=== PATIENT | male | born 1965 | race American Indian/Alaskan Native ===

== ENCOUNTER 2016-10-23 12:25 | Inpatient (IN) | payer BC ==
[2016-10-23 14:00] LABS: Basophils % (Auto) 0.6 % (0.0-1.8); Eosinophils % (Auto) 1.1 % (0.0-4.3); Hemoglobin 14.4 gm/dl (11.8-15.2); Mean Corpuscular HGB Conc 33 % (32-34); Mean Corpuscular Hemoglobin 28 pg (28-32); Mean Corpuscular Volume 84 fl (84-94); Platelet Count 209 K/mm3 (140-440); Red Blood Count 5.11 M/mm3 (3.65-5.03); White Blood Count 8.3 K/mm3 (4.5-11.0)
[2016-10-23 14:20] LABS: Anion Gap 21 mmol/L; BUN/Creatinine Ratio 12.22; Blood Urea Nitrogen 11 mg/dL (9-20); Calcium 9.7 mg/dL (8.4-10.2); Carbon Dioxide 25 mmol/L (22-30); Chloride 86.7 mmol/L (98-107); Potassium 5.3 mmol/L (3.6-5.0); Sodium 127 mmol/L (137-145)
[2016-10-23 14:35] LABS: Glucose 746 mg/dL (75-100)
[2016-10-23] MEDS ORDERED: NACL 0.9% 1000 ML 1,000 ML IV ONE ×2 (17:30→17:36)
--- NOTE | 2016-10-23 17:32 | Emergency Department Report ---
ED General Adult HPI - General Chief complaint: Abdominal Pain Stated complaint: LIGHTHEADED AND DIZZY Time Seen by Provider: 10/23/16 17:08 Source: patient Mode of arrival: Ambulatory Limitations: No Limitations - Related Data Home Medications Medication Instructions Recorded Confirmed Last Taken No Known Home Medications [No 10/23/16 10/23/16 Unknown Reported Home Medications] Allergies Allergy/AdvReac Type Severity Reaction Status Date / Time No Known Allergies Allergy Verified 02/07/14 04:58 ED Review of Systems ROS: Stated complaint: LIGHTHEADED AND DIZZY Other details as noted in HPI ED Past Medical Hx - Past Medical History Hx Hypertension: No Hx CVA: No Hx GERD: No Hx Renal Disease: No (Renal stones only) Hx Sickle Cell Disease: No Hx Arthritis: No Hx Headaches / Migraines: No Hx Seizures: No Hx Kidney Stones: Yes Hx Psychiatric Treatment: No Hx Asthma: Yes (Triggered by paint fumes only) Hx HIV: No Additional medical history: kidney stones - Surgical History Hx Pacemaker: No Hx Breast Surgery: No - Social History Smoking Status: Never Smoker - Medications Home Medications: Home Medications Medication Instructions Recorded Confirmed Last Taken Type No Known Home Medications [No 10/23/16 10/23/16 Unknown History Reported Home Medications] ED Physical Exam - General Limitations: No Limitations ED Course Vital Signs 10/23/16 13:12 Temperature 98.5 F Pulse Rate 98 H Respiratory 18 Rate Blood Pressure 126/73 O2 Sat by Pulse 100 Oximetry ED Medical Decision Making - Lab Data Result diagrams: 10/23/16 13:33 10/23/16 13:33 Critical care attestation.: If time is entered above; I have spent that time in minutes in the direct care of this critically ill patient, excluding procedure time. ED Disposition Clinical Impression: New onset type 2 diabetes mellitus, Hyperglycemia, Hyperkalemia Disposition: OP ADMITTED IP TO THIS HOSP Is pt being admited?: Yes Condition: Stable Time of Disposition: 17:31 (Dr wu/hosp)
--- NOTE | 2016-10-23 17:36 | Emergency Department Report ---
ED General Adult HPI - General Chief complaint: Abdominal Pain Stated complaint: LIGHTHEADED AND DIZZY Time Seen by Provider: 10/23/16 17:08 Source: patient Mode of arrival: Ambulatory Limitations: No Limitations - History of Present Illness Initial comments: 51-year-old male with a past medical history of scrotal mass (surgical removal 2016), asthma, and kidney stones presents to the hospital complains of increased thirst, blurred vision, dizziness, and polyuria for the past 5 days. No aggravating or alleviating factors reported. Patient denies any pain. No abdominal pain, nausea, diarrhea, or fever. Positive dyspnea on exertion for the past week but no complaints of chest pain. Patient did have diarrhea for the past 3 days but improved today. - Related Data Home Medications Medication Instructions Recorded Confirmed Last Taken No Known Home Medications [No 10/23/16 10/23/16 Unknown Reported Home Medications] Allergies Allergy/AdvReac Type Severity Reaction Status Date / Time No Known Allergies Allergy Verified 02/07/14 04:58 ED Review of Systems ROS: Stated complaint: LIGHTHEADED AND DIZZY Other details as noted in HPI Comment: All other systems reviewed and negative Other: Constitutional: No fevers chills Eyes:as per hp i ENT: No ear pain or throat pain Neck: Denies pain Respiratory: Denies cough wheezing Cardiovascular: Denies chest pain, palpitations, syncope GI: Denies abdominal pain, nausea, vomiting : Denies dysuria Musculoskeletal: Denies back pain, joint swelling Skin: Denies rash, lesions, erythema Neurologic: Denies headache, numbness, weakness Psychiatric: Denies suicidal ideation, hallucinations ED Past Medical Hx - Past Medical History Hx Hypertension: No Hx CVA: No Hx GERD: No Hx Renal Disease: No (Renal stones only) Hx Sickle Cell Disease: No Hx Arthritis: No Hx Headaches / Migraines: No Hx Seizures: No Hx Kidney Stones: Yes Hx Psychiatric Treatment: No Hx Asthma: Yes (Triggered by paint fumes only) Hx HIV: No Additional medical history: kidney stones - Surgical History Hx Pacemaker: No Hx Breast Surgery: No - Social History Smoking Status: Never Smoker - Medications Home Medications: Home Medications Medication Instructions Recorded Confirmed Last Taken Type No Known Home Medications [No 10/23/16 10/23/16 Unknown History Reported Home Medications] ED Physical Exam - General Limitations: No Limitations - Other Other exam information: General: No limitations, Head exam: Atraumatic, normocephalic Eyes exam: Normal appearance, pupils equal reactive to light ENT: Moist mucous membrane, normal oropharynx Neck exam: Normal inspection, full range of motion Respiratory exam: Clear to auscultation bilateral, no wheezes, rales, crackles Cardiovascular: Normal rate and rhythm, normal heart sounds Abdomen: Soft, nondistended, and nontender, with normal bowel sounds, no rebound, or guarding Extremity: Full range of motion normal inspection no deformity Back: Normal Inspection, full range of motion, no tenderness Neurologic: Alert, oriented x3, cranial nerves intact, no motor or sensory deficit Psychiatric: normal affect, normal mood Skin: Warm, dry, intact ED Course Vital Signs 10/23/16 13:12 Temperature 98.5 F Pulse Rate 98 H Respiratory 18 Rate Blood Pressure 126/73 O2 Sat by Pulse 100 Oximetry - Reevaluation(s) Reevaluation #1: 10/23/16 17:36 NS, Regular insulin ordered, UA pending ED Medical Decision Making - Lab Data Result diagrams: 10/23/16 13:33 10/23/16 13:33 Lab Results 10/23/16 10/23/16 10/23/16 Range/Units 13:33 13:33 16:11 WBC 8.3 (4.5-11.0) K/mm3 RBC 5.11 H (3.65-5.03) M/mm3 Hgb 14.4 (11.8-15.2) gm/dl Hct 43.0 (35.5-45.6) % MCV 84 (84-94) fl MCH 28 (28-32) pg MCHC 33 (32-34) % RDW 13.0 L (13.2-15.2) % Plt Count 209 (140-440) K/mm3 Lymph % (Auto) 23.3 (13.4-35.0) % [place] % (Auto) 6.2 (0.0-7.3) % Eos % (Auto) 1.1 (0.0-4.3) % Baso % (Auto) 0.6 (0.0-1.8) % Lymph # 1.9 (1.2-5.4) K/mm3 [place] # 0.5 (0.0-0.8) K/mm3 Eos # 0.1 (0.0-0.4) K/mm3 Baso # 0.1 (0.0-0.1) K/mm3 Seg Neutrophils % 68.8 (40.0-70.0) % Seg Neutrophils # 5.7 (1.8-7.7) K/mm3 Sodium 127 L (137-145) mmol/L Potassium 5.3 H (3.6-5.0) mmol/L Chloride 86.7 L (98-107) mmol/L Carbon Dioxide 25 (22-30) mmol/L Anion Gap 21 mmol/L BUN 11 (9-20) mg/dL Creatinine 0.9 (0.8-1.5) mg/dL Estimated GFR > 60 ml/min BUN/Creatinine Ratio 12.22 % Glucose 746 H* (75-100) mg/dL Calcium 9.7 (8.4-10.2) mg/dL Troponin T < 0.010 < 0.010 (0.00-0.029) ng/mL - EKG Data -: EKG Interpreted by Me (nsr rate 88, no stemi) - Medical Decision Making Plan to admit to the hospital for treatment of new onset dm significant elevated glucose. Unlikely DKA given normal bicarbonate and anion gap but venous pH and serum ketones and UA pending. 2 L of normal saline and regular insulin 10 units initiated in the ED - Differential Diagnosis dm, unstable angina, anemia, dehydation, Critical Care Time: No Critical care attestation.: If time is entered above; I have spent that time in minutes in the direct care of this critically ill patient, excluding procedure time. ED Disposition Clinical Impression: New onset type 2 diabetes mellitus, Hyperglycemia, Hyperkalemia Disposition: OP ADMITTED IP TO THIS HOSP Is pt being admited?: Yes Condition: Stable
[2016-10-23 18:39] LABS: Bilirubin,Urine NEG (Negative); Blood,Urine NEG (Negative); Ketones,Urine 20 mg/dL (Negative); Leukocyte Esterase,Urine NEG (Negative); Mucus,Urine FEW /HPF; Nitrite,Urine NEG (Negative); Protein,Urine <15 mg/dL mg/dL (Negative); Urobilinogen,Urine < 2.0 mg/dL (<2.0); WBC,Urine < 1.0 /HPF (0.0-6.0)
[2016-10-23] MEDS ORDERED: NACL 0.9% 1000 ML 2,000 ML ONE (18:50)
--- NOTE | 2016-10-23 23:42 | Event Note ---
Date: 10/23/16 See H/p in reports Hyperosmolar non ketotic state in new onset T2DM Hyponatremia Hyperkalemia Dehydration
[2016-10-23] MEDS ORDERED: NACL 0.9% 1000 ML 1,000 ML IV SCH (23:45)
--- NOTE | 2016-10-24 01:33 | History and Physical Report ---
CHIEF COMPLAINT: Abdominal pain for 1 day. HISTORY OF PRESENT ILLNESS: A 51-year-old with past medical history of asthma and kidney stone, presents with increasing thirst and blurred vision, dizziness, and polyuria for the past 5 days. No aggravating or alleviating factors. Slight abdominal discomfort. No nausea, no diarrhea, no vomiting. Shortness of breath on exertion for the past week. No complaint of chest pain. The patient has had diarrhea for the past 3 days, but improved. PAST MEDICAL HISTORY: No significant past medical history. Kidney stones and asthma. PAST SURGICAL HISTORY: None. SOCIAL HISTORY: Does not smoke. No alcohol, no recreational drugs. CURRENT MEDICATIONS: None. FAMILY HISTORY: No hypertension, no diabetes. REVIEW OF SYSTEMS: CONSTITUTIONAL: Weight loss present. No fever, no chills. HEENT: Dry mucous membranes, and blurred vision present. No sore throat. CARDIOVASCULAR: No chest pain, no palpitations. No diaphoresis. RESPIRATORY: No cough, no wheezing. GASTROINTESTINAL: Nausea present. No vomiting. GENITOURINARY: Polyuria present. No dysuria. MUSCULOSKELETAL: Feels weak in the muscles. No muscle pain. CENTRAL NERVOUS SYSTEM: No syncope, no seizures. SKIN: No rash. HEMATOLOGIC AND LYMPHATIC: No easy bruising or lymphedema. PSYCHIATRIC: No depression or suicidal thoughts. A 14-point review of systems was done. PHYSICAL EXAMINATION: GENERAL: Middle-aged male, cooperative during examination. VITAL SIGNS: Temperature 98.5, pulse is 98, respirations 18, blood pressure is 126/73. HEENT: Dry mucous membranes. Pupils equal and reactive. NECK: Supple, no lymphadenopathy, no thyromegaly. LUNGS: Clear to auscultation and percussion. Good air entry. CARDIOVASCULAR: S1, S2 heard. No gallop, no murmur, no rub. Apical impulse in left fifth intercostal space and midclavicular line. ABDOMEN: Soft and benign. No hepatosplenomegaly. No guarding, no rigidity. Hernial orifices are normal. EXTREMITIES: Good pedal pulses. No pedal edema. CENTRAL NERVOUS SYSTEM: Alert and oriented x 4, nonfocal exam. SKIN: Normal. LABORATORY DATA: Significant for white count of 8300, H and H 14.4 and 43.0, platelet count of 209,000. Sodium is 127, potassium is 5.3, BUN and creatinine 11 and 0.9. Initial glucose is 746. The repeat glucose is 335. Urine shows specific gravity of 1.032, glucose more than 500, protein less than 15, no wbc's. EKG, normal sinus rhythm, heart rate of 88. No STEMI. ER COURSE: The patient was given 2 liters of normal saline, IV insulin. Venous pH, serum ketones are pending. ASSESSMENT AND PLAN: 1. Hyperosmolar nonketotic state in new onset diabetes. The patient's glucose levels have come down to 335 in the ER. Hence, we will admit to the floor, put him on high dose sliding scale coverage. Also, the patient initiated on metformin XL 500 mg once a day, glimepiride 4 mg once a day and Tradjenta 5 mg, Tradjenta is linagliptin 5 mg, once a day. Diabetes education to be done. A1c ordered. 2. Hyponatremia should correct after correcting the glucose levels. 3. Hyperkalemia should also correct with the correction of glucose levels and IV insulin should bring potassium down to normal 4. Deep venous thrombosis prophylaxis, Lovenox 40 mg subcutaneous daily. JOB# [id number] VSM/NTS
[2016-10-24] MEDS: NOVOLOG SUB-Q SCH ×6 (06:49→22:17)
[2016-10-24] MEDS ORDERED: D50W (25GM) IV PRN (07:36)
[2016-10-24] MEDS ORDERED: PROVENTIL IH PRN (07:39)
--- NOTE | 2016-10-24 07:42 | Progress Note ---
Assessment and Plan Assessment and plan: 51-year-old man with a past medical history of asthma and diabetes who presented in hyperglycemic hyperosmolar nonketotic state 1. Uncontrolled diabetes, hyperglycemic hyperosmolar nonketotic state Continue oral medications, add long acting pre-meal and sliding scale insulin. 2. Hyponatremia Most likely pseudohyponatremia due to hyperglycemia, correcting with insulin 3. Hyperkalemia Resolving with insulins, follow-up BMP this a.m. 4. Asthma On exacerbation, albuterol when necessary History Interval history: Admit systems fatigue, denies headache, denies chest pain, no shortness of breath, denies nausea, polyuria/polydipsia is improving Hospitalist Physical - Physical exam Narrative exam: General: Patient appears well in no distress HEENT: MMM, EOMI cardiac: S1-S2 heard lungs: clear to auscultation, abdomen: soft, nontender, nondistended bowel sounds positive extremities: no edema clubbing or cyanosis Skin: no rash or lesion Neuro: no focal deficit Psych: appropriate behavior and mood, cognition intact - Constitutional Vitals: Temp Pulse Resp BP Pulse Ox 97.9 F 76 18 100/55 96 10/23/16 23:25 10/23/16 23:25 10/23/16 23:25 10/23/16 23:25 10/23/16 23:25 Results - Labs CBC & Chem 7: 10/23/16 13:33 10/24/16 08:49 Labs: Laboratory Last Values WBC 8.3 K/mm3 (4.5-11.0) 10/23/16 13:33 RBC 5.11 M/mm3 (3.65-5.03) H 10/23/16 13:33 Hgb 14.4 gm/dl (11.8-15.2) 10/23/16 13:33 Hct 43.0 % (35.5-45.6) 10/23/16 13:33 MCV 84 fl (84-94) 10/23/16 13:33 MCH 28 pg (28-32) 10/23/16 13:33 MCHC 33 % (32-34) 10/23/16 13:33 RDW 13.0 % (13.2-15.2) L 10/23/16 13:33 Plt Count 209 K/mm3 (140-440) 10/23/16 13:33 Lymph % (Auto) 23.3 % (13.4-35.0) 10/23/16 13:33 [place] % (Auto) 6.2 % (0.0-7.3) 10/23/16 13:33 Eos % (Auto) 1.1 % (0.0-4.3) 10/23/16 13:33 Baso % (Auto) 0.6 % (0.0-1.8) 10/23/16 13:33 Lymph # 1.9 K/mm3 (1.2-5.4) 10/23/16 13:33 [place] # 0.5 K/mm3 (0.0-0.8) 10/23/16 13:33 Eos # 0.1 K/mm3 (0.0-0.4) 10/23/16 13:33 Baso # 0.1 K/mm3 (0.0-0.1) 10/23/16 13:33 Seg Neutrophils % 68.8 % (40.0-70.0) 10/23/16 13:33 Seg Neutrophils # 5.7 K/mm3 (1.8-7.7) 10/23/16 13:33 VBG pH 7.420 (7.320-7.420) 10/23/16 21:24 Sodium 127 mmol/L (137-145) L 10/23/16 13:33 Potassium 5.3 mmol/L (3.6-5.0) H 10/23/16 13:33 Chloride 86.7 mmol/L (98-107) L 10/23/16 13:33 Carbon Dioxide 25 mmol/L (22-30) 10/23/16 13:33 Anion Gap 21 mmol/L 10/23/16 13:33 BUN 11 mg/dL (9-20) 10/23/16 13:33 Creatinine 0.9 mg/dL (0.8-1.5) 10/23/16 13:33 Estimated GFR > 60 ml/min 10/23/16 13:33 BUN/Creatinine Ratio 12.22 % 10/23/16 13:33 Glucose 746 mg/dL (75-100) H* 10/23/16 13:33 POC Glucose 372 (70-105) H 10/24/16 06:03 Calcium 9.7 mg/dL (8.4-10.2) 10/23/16 13:33 Troponin T < 0.010 ng/mL (0.00-0.029) 10/23/16 21:24 Urine Color Straw (Yellow) 10/23/16 18:10 Urine Turbidity Clear (Clear) 10/23/16 18:10 Urine pH 7.0 (5.0-7.0) 10/23/16 18:10 Ur Specific [place] 1.032 (1.003-1.030) H 10/23/16 18:10 Urine Protein <15 mg/dl mg/dL (Negative) 10/23/16 18:10 Urine Glucose (UA) >=500 mg/dL (Negative) 10/23/16 18:10 Urine Ketones 20 mg/dL (Negative) 10/23/16 18:10 Urine Blood Neg (Negative) 10/23/16 18:10 Urine Nitrite Neg (Negative) 10/23/16 18:10 Urine Bilirubin Neg (Negative) 10/23/16 18:10 Urine Urobilinogen < 2.0 mg/dL (<2.0) 10/23/16 18:10 Ur Leukocyte Esterase Neg (Negative) 10/23/16 18:10 Urine WBC (Auto) < 1.0 /HPF (0.0-6.0) 10/23/16 18:10 Urine RBC (Auto) 2.0 /HPF (0.0-6.0) 10/23/16 18:10 Urine Mucus Few /HPF 10/23/16 18:10
[2016-10-24] MEDS: GLUCOPHAGE XR PO SCH (08:44)
[2016-10-24] MEDS: AMARYL PO SCH (08:44)
[2016-10-24 09:21] LABS: Anion Gap 17 mmol/L; BUN/Creatinine Ratio 11.11; Blood Urea Nitrogen 10 mg/dL (9-20); Calcium 9.4 mg/dL (8.4-10.2); Carbon Dioxide 26 mmol/L (22-30); Chloride 96.5 mmol/L (98-107); Glucose 374 mg/dL (75-100); Potassium 4.4 mmol/L (3.6-5.0); Sodium 135 mmol/L (137-145)
--- NOTE | 2016-10-24 09:28 | XRay Report ---
ROUTINE CHEST, TWO VIEWS: HISTORY: Short of breath. The trachea, heart, mediastinal contour, lung borges and bony thorax are unremarkable. IMPRESSION: Unremarkable chest x-ray.
[2016-10-24] MEDS: TRADJENTA PO SCH (09:56)
--- NOTE | 2016-10-24 16:54 | Admit Criteria Form ---
Admission Criteria Documentation: DIABETES Clinical Indications for Admission to Inpatient Care (Place 'X' for any and all applicable criteria): Admission is indicated by presence of ALL (if I & II) or ANY ONE (if III or IV) of the following (1)(2)(3)(4): [ ]I. Diabetes is uncontrolled as indicated by ANY ONE of the following: [ ]a) Diabetic ketoacidosis as indicated by ALL of the following (8): [ ]i) Hyperglycemia (eg, plasma glucose greater than 200 mg/ dL (11.1 mmol/L)) [ ]ii) Acidosis (eg, arterial pH less than 7.30, serum bicarbonate level less than 15 mEq/L (mmol/L)) [ ]iii) Moderate ketonuria or ketonemia [ ]b) Hyperglycemic hyperosmolar state as indicated by ALL of the following(9)(10): [ ]i) Neurologic dysfunction (eg, stupor, coma, hemiparesis , seizure)(13) [ ]ii) Plasma glucose greater than 600 mg/dL (33.3 mmol/L) [ ]iii) Serum osmolality greater than 320 mOsm/kg (mmol/kg) [ ]c) Severe signs or symptoms secondary to hyperglycemia indicated by ANY ONE of the following: [ ]i) Altered mental status(10) [ ]ii) Significant hypovolemia or dehydration [ ]iii) Intractable nausea or vomiting [ ]iv) Unexplained fever or severe infection [ ]v) Severe electrolyte abnormality (eg, hypokalemia, hyperkalemia, hypernatremia) [ ]II. Management at other levels of care (Also use Diabetes: Observation Care as appropriate) is not feasible because of ANY ONE of the following: [ ]a) Condition was not adequately corrected with treatment at other levels of care. [ ]b) Treatment at other levels of care is not appropriate because of condition severity (eg, hyperosmolar coma). [ ]III. Contraindications and/or Inappropriate clinical situations for Observational Care in patients with Diabetes, when ANY ONE of the following is required: [ ]a) Patient require specific diagnostic workup or therapeutic intervention 22 [ ]b) Patient with abnormal vital signs or altered mental status 23 [X ]IV. General contraindications and/or Inappropriate clinical situations for Observational Care in patients with Diabetes, when ANY ONE of the following is required: [X ]a) Prediction of prolongation of LOS based on ANY ONE of the following may be considered as a contraindication for observational care 2, 3, 4, 5, 6, 7, 8, 9, 10, 11 [ ]i) Age > 65 yrs. [ ]ii) Patient arriving by ambulance [ ]iii) Patient with high acuity [ ]iv) Patient requiring vital sign monitoring [ X]v) Patient on IV medication [ ]b) Systolic blood pressures 180mmHg 3,12 [ ]c) Patient with altered mental status including delirium and other alteration of consciousness, (3) [ ]d) Patient whose discharge disposition will be to a penitentiary home or rehabilitation home should not be managed in Emergency Department Observation Unit. CMS rule requires 3 days hospital stay before such placement.3,13 [ ]e) Patient with failure to thrive due to broad array of etiologies 3,16,17 [ ]f) Inability to ambulate 3,14 Extended stay beyond goal length of stay may be needed for(3)(20): [ ]a) Treatment of precipitating causes [ ]b) Development of hypoglycemia [ ]c) Complications of treatment [ ]d) Complications of decompensated diabetes (eg, acute gastric dilatation, persistent metabolic or neurologic derangement) [ ]e) Active Comorbidities [ ]f) Older patients( 65 years or older) The original [employer] content created by [employer] has been revised. The portions of the content which have been revised are identified through the use of italic text or in bold,and [facility] has neither reviewed nor approved the modified material. All other unmodified content is copyright [employer] [facility]. Please see references footnoted in the original [employer] [facility] edition 2016 Admission Criteria Met: Yes
[2016-10-24] MEDS ORDERED: LOVENOX SUB-Q SCH ×2 (22:00)
[2016-10-24] MEDS ORDERED: LEVEMIR SUB-Q SCH (22:00)
--- NOTE | 2016-10-25 07:20 | Discharge Summary ---
Providers - Providers Date of Admission: 10/23/16 17:38 Attending physician: YEVGENIY CAMARILLO MD Primary care physician: [employer]ST[employer]ER Hospitalization Condition: Stable Hospital course: 51-year-old man with a past medical history of asthma and diabetes who presented in hyperglycemic hyperosmolar nonketotic state 1. Uncontrolled diabetes, hyperglycemic hyperosmolar nonketotic state Continue oral medications, add long acting pre-meal and sliding scale insulin. 2. Hyponatremia Most likely pseudohyponatremia due to hyperglycemia, correcting with insulin 3. Hyperkalemia Resolving with insulins, follow-up BMP this a.m. 4. Asthma On exacerbation, albuterol when necessary Disposition: DISCHARGED TO HOME OR SELFCARE Time spent for discharge: 35 minutes Core Measure Documentation - Palliative Care Palliative Care/ Comfort Measures: Not Applicable - Core Measures Any of the following diagnoses?: none Exam - Constitutional Vitals: Temp Pulse Resp BP Pulse Ox 99.5 F 78 18 106/70 99 10/24/16 23:00 10/24/16 23:00 10/24/16 23:00 10/24/16 23:00 10/24/16 23:00 General appearance: Present: no acute distress, well-nourished - EENT Eyes: Present: PERRL ENT: hearing intact, clear oral mucosa - Neck Neck: Present: supple, normal ROM - Respiratory Respiratory effort: normal Respiratory: bilateral: CTA - Cardiovascular Heart Sounds: Present: S1 & S2. Absent: rub, click - Extremities Extremities: pulses symmetrical, No edema Peripheral Pulses: within normal limits - Abdominal General gastrointestinal: Present: soft, non-tender, non-distended, normal bowel sounds Male genitourinary: Present: normal - Integumentary Integumentary: Present: clear, warm, dry - Musculoskeletal Musculoskeletal: gait normal, strength equal bilaterally - Psychiatric Psychiatric: appropriate mood/affect, intact judgment & insight - Neurologic Neurologic: CNII-XII intact, moves all extremities Plan Follow up with: EZRA MELTON MD [Primary Care Provider] - 7 Days MARTHA CISNEROS MD [Staff Physician] - 7 Days Prescriptions: Insulin Glargine,Hum.rec.anlog [Lantus Solostar] 32 units SQ QHS #5 pen Glimepiride [Amaryl] 4 mg PO QDDIAB #60 tablet Insulin Aspart [NovoLOG Flexpen] 10 units SQ AC #5 pen Linagliptin [Tradjenta] 5 mg PO QDAY #30 tablet metFORMIN XR [Glucophage XR] 500 mg PO QDDIAB #60 tablet Pen Needle, Diabetic [Bd Ultra-Fine Pen Needle] 1 each QID #1 box
[2016-10-25] MEDS: NOVOLOG SUB-Q SCH ×4 (08:08→12:24)
[2016-10-25] MEDS: AMARYL PO SCH (08:09)
[2016-10-25] MEDS: GLUCOPHAGE XR PO SCH (08:09)
[2016-10-25] MEDS: TRADJENTA PO SCH (10:09)
[2016-10-25 12:59] VITALS: BP 123/77
== END 2016-10-25 13:05 | disposition home or self-care (01) | DRG 637 ==
LOC: ED 12:25 → 3A 17:38
PROVIDERS: ADMIT Internal Medicine; ATTEND Internal Medicine
DX: E11.65 Type 2 diabetes mellitus with hyperglycemia (principal); E11.00 Type 2 diabetes mellitus with hyperosmolarity without nonketotic hyperglycemic-hyperosmolar coma (NKHHC); J45.901 Unspecified asthma with (acute) exacerbation; E87.1 Hypo-osmolality and hyponatremia; E86.0 Dehydration; E87.5 Hyperkalemia; Z87.442 Personal history of urinary calculi
CPT/HCPCS: 36415; 71020; 80048; 81001; 82805; 82962; 83036; 84484; 85025; 93005; 93010; 96361; 96374; J1650; J1815; J1818; J7030

== ENCOUNTER 2019-02-18 17:00 | Emergency (ER) | payer BC ==
[2019-02-18 17:12] VITALS: BP 149/94
[2019-02-18] MEDS ORDERED: DELTASONE PO ONE (19:38)
[2019-02-18] MEDS ORDERED: TYLENOL #3 PO ONE (19:38)
[2019-02-18] MEDS ORDERED: IBUPROFEN PO ONE (19:38)
--- NOTE | 2019-02-18 19:43 | Emergency Department Report ---
ED Lower Extremity HPI - General Chief Complaint: Extremity Problem,Nontraumatic Stated Complaint: RT LEG PAIN Time Seen by Provider: 02/18/19 19:00 Source: patient Mode of arrival: Ambulatory Limitations: No Limitations - History of Present Illness Initial Comments: pt is a 53 y/o aam with hx of arthralgia wth presents for right anterior knee pain and swelling state he worked ling shift removing motor from car and woke up sore and pain to right anterior knee with swelling, pt does endorse stopeing nad bending frequently , there is no fever no chills no n/v no DM pt remains ambulatory with steady gait a this time , Complaint: knee injury Onset/Timin -: year(s) Injury: Leg: Right, Left, Knee: Right Type of Injury: blunt, hyperflexion Place: home Severity: moderate, Unable to Determine Severity scale (0 -10): 5 Improves With: nothing Worsens With: weight bearing, movement Context: other (arthralgia ) Other Symptoms: loss of consciousness Associated Symptoms: unable to bear weight. denies: swelling, tingling Treatments Prior to Arrival: other (none ) - Related Data Previous Rx's Medication Instructions Recorded Last Taken Type Glimepiride [Amaryl] 4 mg PO QDDIAB #60 tablet 10/25/16 Unknown Rx Insulin Aspart [NovoLOG Flexpen] 10 units SQ AC #5 pen 10/25/16 Unknown Rx Insulin Glargine,Hum.rec.anlog 32 units SQ QHS #5 pen 10/25/16 Unknown Rx [Lantus Solostar] Linagliptin [Tradjenta] 5 mg PO QDAY #30 tablet 10/25/16 Unknown Rx Pen Needle, Diabetic [Ultra-Fine 1 each MC QID #1 box 10/25/16 Unknown Rx Short Pen Needle] metFORMIN XR [Glucophage XR] 500 mg PO QDDIAB #60 tablet 10/25/16 Unknown Rx Ibuprofen [Motrin 800 MG tab] 800 mg PO Q8HR PRN 12 Days #30 02/18/19 Unknown Rx tablet Menthol/Camphor [[place] 1 applicatio TP QID PRN #1 tube 02/18/19 Unknown Rx Ointment] predniSONE [Deltasone] 40 mg PO QDAY 5 Days #10 tab 02/18/19 Unknown Rx Allergies Allergy/AdvReac Type Severity Reaction Status Date / Time No Known Allergies Allergy Verified 02/07/14 04:58 ED Review of Systems ROS: Stated complaint: RT LEG PAIN Other details as noted in HPI Constitutional: denies: chills, fever Eyes: denies: eye pain, eye discharge, vision change ENT: denies: ear pain, throat pain Respiratory: denies: cough, shortness of breath, wheezing Cardiovascular: as per HPI Endocrine: no symptoms reported Gastrointestinal: abdominal pain Genitourinary: denies: urgency, dysuria Musculoskeletal: denies: back pain, joint swelling, arthralgia Skin: denies: rash, lesions Neurological: denies: headache, weakness, paresthesias Psychiatric: denies: anxiety, depression ED Past Medical Hx - Past Medical History Previous Medical History?: Yes Hx Hypertension: No Hx CVA: No Hx Diabetes: Yes (new dx) Hx GERD: No Hx Renal Disease: No (Renal stones only) Hx Sickle Cell Disease: No Hx Arthritis: No Hx Headaches / Migraines: No Hx Seizures: No Hx Kidney Stones: Yes Hx Psychiatric Treatment: No Hx Asthma: Yes (with paint fumes) Hx HIV: No Additional medical history: kidney stones - Surgical History Past Surgical History?: Yes Hx Pacemaker: No Hx Breast Surgery: No Additional Surgical History: scrotum surgery - Social History Smoking Status: Unknown if ever smoked Substance Use Type: None - Medications Home Medications: Home Medications Medication Instructions Recorded Confirmed Last Taken Type Glimepiride [Amaryl] 4 mg PO QDDIAB #60 tablet 10/25/16 Unknown Rx Insulin Aspart [NovoLOG Flexpen] 10 units SQ AC #5 pen 10/25/16 Unknown Rx Insulin Glargine,Hum.rec.anlog 32 units SQ QHS #5 pen 10/25/16 Unknown Rx [Lantus Solostar] Linagliptin [Tradjenta] 5 mg PO QDAY #30 tablet 10/25/16 Unknown Rx Pen Needle, Diabetic [Ultra-Fine 1 each MC QID #1 box 10/25/16 Unknown Rx Short Pen Needle] metFORMIN XR [Glucophage XR] 500 mg PO QDDIAB #60 tablet 10/25/16 Unknown Rx Ibuprofen [Motrin 800 MG tab] 800 mg PO Q8HR PRN 12 Days #30 02/18/19 Unknown Rx tablet Menthol/Camphor [[place] 1 applicatio TP QID PRN #1 tube 02/18/19 Unknown Rx Ointment] predniSONE [Deltasone] 40 mg PO QDAY 5 Days #10 tab 02/18/19 Unknown Rx ED Physical Exam - General Limitations: No Limitations General appearance: alert, in no apparent distress - Head Head exam: Present: atraumatic, normocephalic, normal inspection - Eye Eye exam: Present: normal appearance, PERRL, EOMI Pupils: Present: normal accommodation - ENT ENT exam: Present: normal orophraynx, mucous membranes moist, TM's normal bilaterally, normal external ear exam - Neck Neck exam: Present: normal inspection, full ROM. Absent: tenderness, meningismus, lymphadenopathy, thyromegaly - Expanded Neck Exam Expanded Neck exam: Absent: tenderness, midline deformity, anterior neck swelling, thyroid mass, carotid bruit, tracheal deviation - Respiratory Respiratory exam: Present: normal lung sounds bilaterally, wheezes, chest wall tenderness. Absent: respiratory distress - Cardiovascular Cardiovascular Exam: Present: regular rate, normal rhythm, normal heart sounds. Absent: systolic murmur, diastolic murmur, rubs, gallop - GI/Abdominal GI/Abdominal exam: Present: soft, normal bowel sounds, bruit, hernia. Absent: distended, tenderness - Expanded GI/Abdominal Exam Expanded GI/Abdominal exam: Absent: obturator sign, heel tap sign, Szymanski's sign - Rectal Rectal exam: Present: deferred - Extremities Exam Extremities exam: Present: normal inspection, normal capillary refill. Absent: pedal edema - Expanded Lower Extremity Exam Right Knee exam: Present: full ROM, erythema. Absent: tenderness, swelling, abrasion, laceration, ecchymosis, deformity, crepidus, dislocation, effusion, pain w/ pronation/supination, posterior draw sign, pain/laxity with valgus, pain/laxity with varus, full knee extension - Back Exam Back exam: Present: normal inspection. Absent: full ROM, tenderness, CVA tenderness (L), muscle spasm, paraspinal tenderness, rash noted - Neurological Exam Neurological exam: Present: alert, oriented X3, CN II-XII intact, normal gait, reflexes normal - Psychiatric Psychiatric exam: Present: normal affect ED Course Vital Signs 02/18/19 17:09 Temperature 98.0 F Pulse Rate 80 Blood Pressure 149/94 O2 Sat by Pulse 97 Oximetry ED Lower Extremity MDM - Radiology Data Radiology results: report reviewed, image reviewed - Medical Decision Making this is right knee strain plan, sterioid, nsaids nex exercises, follow up wih pcp in 2-3 days. Critical care attestation.: If time is entered above; I have spent that time in minutes in the direct care of this critically ill patient, excluding procedure time. ED Disposition Clinical Impression: Strain of right knee Qualifiers: Encounter type: initial encounter Qualified Code(s): S86.911A - Strain of unspecified muscle(s) and tendon(s) at lower leg level, right leg, initial encounter Disposition: TO HOME OR SELFCARE Is pt being admited?: No Does the pt Need Aspirin: No Condition: Stable Instructions: Knee Pain (ED), Knee Immobilizer (ED) Prescriptions: predniSONE [Deltasone] 40 mg PO QDAY 5 Days #10 tab Ibuprofen [Motrin 800 MG tab] 800 mg PO Q8HR PRN 12 Days #30 tablet PRN Reason: Pain , Severe (7-10) Menthol/Camphor [[place] Ointment] 1 applicatio TP QID PRN #1 tube PRN Reason: pain Referrals: CARLINE REICH MD [Staff Physician] - 3-5 Days Forms: Work/School Release Form(ED) Time of Disposition: 20:03
== END 2019-02-18 20:13 | disposition home or self-care (01) ==
LOC: ED 17:00
DX: S86.911A Strain of unspecified muscle(s) and tendon(s) at lower leg level, right leg, initial encounter (principal); E11.9 Type 2 diabetes mellitus without complications; J45.909 Unspecified asthma, uncomplicated; Z98.890 Other specified postprocedural states; Z79.4 Long term (current) use of insulin; X50.0XXA Overexertion from strenuous movement or load, initial encounter; Y93.89 Activity, other specified; Y92.009 Unspecified place in unspecified non-institutional (private) residence as the place of occurrence of the external cause; Y99.8 Other external cause status
CPT/HCPCS: 99282; J7512

== ENCOUNTER 2020-11-30 12:30 | Emergency (ER) | payer BC ==
[2020-11-30] MEDS ORDERED: SODIUM CHLORIDE 0.9% 1000 ML 1,000 ML IV ONE (17:16)
--- NOTE | 2020-11-30 17:17 | Event Note ---
ED Screening Note Date of service: 11/30/20 Time: 17:17 ED Screening Note: 55-year-old male patient with history of poorly controlled diabetes requiring hospitalization for hyperglycemic hyperosmolar nonketotic state presents to the emergency department with complaints of nontraumatic intermittent left shoulder pain for several months. Patient states he was at work earlier today when his left shoulder and left arm became too painful to move, prompting him to come to the emergency department. He admits that he is not compliant with his glycemic control medication regimen. Fingerstick glucose >370 in triage. General: Awake, appropriately interactive, no acute distress. Neck: Supple. Full range of motion intact. Cardiovascular: Normal peripheral perfusion. Pulmonary: No respiratory distress. Patient is speaking normally without use of accessory muscles. Skin: No apparent rashes or lesions. Neurological: No facial asymmetry. Speech is clear. Follows commands. Patient is alert and oriented. Musculoskeletal: Moves all four extremities spontaneously with normal range of motion. Psych: Cooperative. Appropriate mood and affect. I have greeted and performed a focused rapid initial assessment of this patient. A comprehensive ED assessment and evaluation of the patient, analysis of all test results, and completion of the medical decision-making process will be conducted by additional ED providers. This initial assessment/diagnostic orders/clinical plan/treatment(s) is/are subject to change based on patients health status, clinical progression and re-assessment. Further treatment and workup at subsequent clinical provider's discretion. Patient/guardian urged not to elope from the ED as their condition may be serious if not clinically assessed and managed.
[2020-11-30] MEDS ORDERED: ASPIRIN 81 MG TAB CHEW PO ONE (17:19)
[2020-11-30 17:37] LABS: Basophils # (Auto) 0.1 K/mm3 (0.0-0.1); Basophils % (Auto) 0.7 % (0.0-1.8); Eosinophils # (Auto) 0.2 K/mm3 (0.0-0.4); Eosinophils % (Auto) 2.4 % (0.0-4.3); Hematocrit 41.5 % (35.5-45.6); Hemoglobin 14.3 gm/dl (11.8-15.2); Lymphocytes # (Auto) 2.5 K/mm3 (1.2-5.4); Lymphocytes % (Auto) 29.4 % (13.4-35.0); Mean Corpuscular HGB Conc 34 % (32-34); Mean Corpuscular Volume 85 fl (84-94); Monocytes # (Auto) 0.4 K/mm3 (0.0-0.8); Monocytes % (Auto) 5.3 % (0.0-7.3); Platelet Count 225 K/mm3 (140-440); Red Blood Count 4.86 M/mm3 (3.65-5.03); Red Cell Distribution Width 12.9 % (13.2-15.2)
[2020-11-30 17:55] LABS: Alanine Aminotransferase 17 units/L (7-56); Albumin 4.4 g/dL (3.9-5); Blood Urea Nitrogen 8 mg/dL (9-20); Calcium 9.6 mg/dL (8.4-10.2); Hemolysis Index 10
[2020-11-30 17:57] LABS: BUN/Creatinine Ratio 11
--- NOTE | 2020-11-30 18:13 | XRay Report ---
CHEST 2 VIEWS INDICATION: left shoulder pain; hx diabetes. COMPARISON: FINDINGS: Support devices: None. Heart: Within normal limits. Lungs: No acute air space or interstitial disease. Pleura: No significant pleural effusion. No pneumothorax. Additional findings: None. IMPRESSION: 1. No acute findings. Signer Name: Rainer Talavera MD Signed: 11/30/2020 6:08 PM Workstation Name: [id number]
[2020-11-30 18:40] LABS: Bilirubin,Urine NEG (Negative); Blood,Urine MOD (Negative); Color,Urine Yellow (Yellow); Mucus,Urine FEW /HPF; Protein,Urine <15 mg/dL mg/dL (Negative); Urobilinogen,Urine < 2.0 mg/dL (<2.0)
[2020-11-30] MEDS ORDERED: KETOROLAC 60 MG/2 ML INJ IM ONE (22:58)
--- NOTE | 2020-11-30 23:03 | Emergency Department Report ---
HPI - General Chief Complaint: Pain General Time Seen by Provider: 11/30/20 22:46 - HPI HPI: Room 7 The patient is a 55-year-old male present with a chief complaint of left shoulder and left flank pain. Patient states his symptoms began with pain in th e left shoulder since April 2020. Patient states he does not recall any specific injury but says that the pain comes on with the use of his left arm (patient is left-handed). The patient states over the past 2 days his left shoulder has been throbbing. Patient complains of pain to the left shoulder radiating to the left lateral neck. The patient states also for the past 3 days she has had intermittent pain in the left flank. Patient admits to hematuria for 1 day but denies dysuria, fever or nausea/vomiting. Patient currently gets his pain a score of 7/10. The patient drove himself to the emergency department and there are no visitors present ED Past Medical Hx - Past Medical History Previous Medical History?: Yes Hx Diabetes: Yes (new dx) Hx Renal Disease: No (Renal stones only) Hx Kidney Stones: Yes Hx Asthma: Yes (with paint fumes) Additional medical history: kidney stones - Surgical History Past Surgical History?: Yes Additional Surgical History: scrotum surgery - Family History Family history: no significant - Social History Smoking Status: Never Smoker Substance Use Type: None (Denies illicit drug use), Alcohol (Rarely), Prescribed - Medications Home Medications: Home Medications Medication Instructions Recorded Confirmed Last Taken Type Glimepiride [Amaryl] 4 mg PO QDDIAB #60 tablet 10/25/16 Unknown Rx Insulin Aspart (Nf) [NovoLOG 10 units SQ AC #5 pen 10/25/16 Unknown Rx Flexpen] Insulin Glargine,Hum.rec.anlog 32 units SQ QHS #5 pen 10/25/16 Unknown Rx [Lantus Solostar] Linagliptin [Tradjenta] 5 mg PO QDAY #30 tablet 10/25/16 Unknown Rx Pen Needle, Diabetic [Ultra-Fine 1 each MC QID #1 box 10/25/16 Unknown Rx Short Pen Needle] metFORMIN XR [Glucophage XR] 500 mg PO QDDIAB #60 tablet 10/25/16 Unknown Rx Ibuprofen [Motrin 800 MG tab] 800 mg PO Q8HR PRN 12 Days #30 02/18/19 Unknown Rx tablet Menthol/Camphor [[place] 1 applicatio TP QID PRN #1 tube 02/18/19 Unknown Rx Ointment] predniSONE [Deltasone] 40 mg PO QDAY 5 Days #10 tab 02/18/19 Unknown Rx Cyclobenzaprine [Flexeril] 10 mg PO TID PRN #10 tablet 12/01/20 Unknown Rx HYDROcodone/APAP 5-325 [[place] 1 - 2 each PO Q6HR PRN #14 tablet 12/01/20 Unknown Rx 5/325] Ibuprofen [Motrin 800 MG tab] 800 mg PO Q8HR PRN #20 tablet 12/01/20 Unknown Rx ED Review of Systems ROS: Stated complaint: LEFT SHOULDER PAIN, BACK PAIN Other details as noted in HPI Constitutional: denies: fever Eyes: denies: eye pain ENT: denies: throat pain Respiratory: no symptoms reported Cardiovascular: denies: chest pain Endocrine: no symptoms reported Gastrointestinal: denies: abdominal pain, nausea, vomiting Genitourinary: hematuria. denies: dysuria Musculoskeletal: back pain Neurological: denies: headache Physical Exam - Physical Exam Vital Signs: Vital Signs 11/30/20 17:09 Temperature 97.7 F Pulse Rate 78 Respiratory 18 Rate Blood Pressure 120/77 O2 Sat by Pulse 99 Oximetry Physical Exam: GENERAL: The patient is well-developed well-nourished male lying on stretcher not appearing to be in acute distress. [] HEENT: Normocephalic. Atraumatic. Extraocular motions are intact. Patient has moist mucous membranes. NECK: Supple. Trachea midline CHEST/LUNGS: Clear to auscultation. There is no respiratory distress noted. HEART/CARDIOVASCULAR: Regular. There is no tachycardia. There is no gallop rub or murmur. ABDOMEN: Abdomen is soft, nontender. Patient has normal bowel sounds. There is no abdominal distention. SKIN: There is no rash. There is no edema. There is no diaphoresis. NEURO: The patient is awake, alert, and oriented. The patient is cooperative. The patient has no focal neurologic deficits. The patient has normal speech MUSCULOSKELETAL: There is no tenderness to palpation of the left shoulder. There is full range of motion of the left shoulder. There is no pain elicited from resisted pushing anteriorly of the left upper extremity. Normal ulnar, median and radial nerve functions. There is left CVA tenderness ED Course Vital Signs 11/30/20 17:09 Temperature 97.7 F Pulse Rate 78 Respiratory 18 Rate Blood Pressure 120/77 O2 Sat by Pulse 99 Oximetry ED Medical Decision Making - Lab Data Result diagrams: 11/30/20 17:19 11/30/20 17:19 Laboratory Tests 11/30/20 11/30/20 11/30/20 17:10 17:19 17:19 WBC 8.4 RBC 4.86 Hgb 14.3 Hct 41.5 MCV 85 MCH 29 MCHC 34 RDW 12.9 L Plt Count 225 Lymph % (Auto) 29.4 Butts % (Auto) 5.3 Eos % (Auto) 2.4 Baso % (Auto) 0.7 Lymph # (Auto) 2.5 Butts # (Auto) 0.4 Eos # (Auto) 0.2 Baso # (Auto) 0.1 Seg Neutrophils % 62.2 Seg Neutrophils # 5.2 VBG pH Sodium 133 L Potassium 4.2 Chloride 97.9 L Carbon Dioxide 27 Anion Gap 12 BUN 8 L Creatinine 0.7 L Estimated GFR > 60 BUN/Creatinine Ratio 11 Glucose 387 H POC Glucose 377 H Calcium 9.6 Magnesium 1.90 Total Bilirubin 0.50 AST 16 ALT 17 Alkaline Phosphatase 95 Troponin T < 0.010 Total Protein 7.4 Albumin 4.4 Albumin/Globulin Ratio 1.5 Urine Color Urine Turbidity Urine pH Ur Specific [place] Gap Urine Protein Urine Glucose (UA) Urine Ketones Urine Blood Urine Nitrite Urine Bilirubin Urine Urobilinogen Ur Leukocyte Esterase Urine WBC (Auto) Urine RBC (Auto) Urine Mucus 11/30/20 11/30/20 11/30/20 17:19 23:32 Unknown WBC RBC Hgb Hct MCV MCH MCHC RDW Plt Count Lymph % (Auto) Butts % (Auto) Eos % (Auto) Baso % (Auto) Lymph # (Auto) Butts # (Auto) Eos # (Auto) Baso # (Auto) Seg Neutrophils % Seg Neutrophils # VBG pH 7.382 Sodium Potassium Chloride Carbon Dioxide Anion Gap BUN Creatinine Estimated GFR BUN/Creatinine Ratio Glucose POC Glucose Calcium Magnesium Total Bilirubin AST ALT Alkaline Phosphatase Troponin T < 0.010 Total Protein Albumin Albumin/Globulin Ratio Urine Color Yellow Urine Turbidity Clear Urine pH 6.0 Ur Specific [place] 1.036 H Urine Protein <15 mg/dl Urine Glucose (UA) >=500 Urine Ketones Neg Urine Blood Mod Urine Nitrite Neg Urine Bilirubin Neg Urine Urobilinogen < 2.0 Ur Leukocyte Esterase Neg Urine WBC (Auto) 2.0 Urine RBC (Auto) 76.0 Urine Mucus Few - Radiology Data Radiology results: report reviewed (Chest x-ray, cervical spine x-ray, left shoulder x-ray, CT abdomen pelvis), image reviewed (Chest x-ray, cervical spine x-ray, left shoulder x-ray, CT abdomen pelvis) interpreted by me: Chest x-ray-no focal infiltrates, no pneumothorax. No foreign body seen Cervical spine x-ray-no definite fracture XRay Report Signed Patient: JAGDISH GRAF MR#: [id number] : 1965 Acct:[id number] Age/Sex: 55 / M ADM Date: 11/30/20 Loc: ED Attending Dr: Ordering Physician: ANGEL HARMON Date of Service: 11/30/20 Procedure(s): XR chest routine 2V Accession Number(s): [id number] cc: ANGEL HARMON Fluoro Time In Minutes: CHEST 2 VIEWS INDICATION: left shoulder pain; hx diabetes. COMPARISON: FINDINGS: Support devices: None. Heart: Within normal limits. Lungs: No acute air space or interstitial disease. Pleura: No significant pleural effusion. No pneumothorax. Additional findings: None. IMPRESSION: 1. No acute findings. Signer Name: Rainer Talavera MD Signed: 11/30/2020 6:08 PM Workstation Name: [id number] Transcribed By: WG Dictated By: Rainer Talavera MD Electronically Authenticated By: Rainer Talavera MD Signed Date/Time: 11/30/201807 DD/ 07 TD/TT: Print Cancel [facility] [address] [place] [address] XRay Report Signed Patient: JAGDISH GRAF MR#: [id number] : 1965 Acct:[id number] Age/Sex: 55 / M ADM Date: 11/30/20 Loc: ED Attending Dr: Ordering Physician: LISA MCNEIL MD Date of Service: 11/30/20 Procedure(s): XR spine cervical 2-3V Accession Number(s): [id number] cc: LISA MCNEIL MD Fluoro Time In Minutes: Left shoulder 2 views INDICATION: Neck pain FINDINGS: There is AC degenerative change. Glenohumeral joint appears normal. No acute fracture or dislocation. IMPRESSION: AC degenerative change. Cervical spine 2 views INDICATION: Neck pain FINDINGS: Discogenic degenerative changes seen throughout cervical spine with endplate changes and anterior osteophytes at several levels. No prevertebral soft tissue swelling cervicothoracic junction is not well seen. Signer Name: Edwin Vee MD Signed: 11/30/2020 11:28 PM Workstation Name: [id number] Transcribed By: DOMINGA Dictated By: LAURA VEE MD Electronically Authenticated By: LAURA VEE MD Signed Date/Time: 11/30/202327 DD/ 26 TD/TT: Print Cancel [facility] [address] [place] [address] XRay Report Signed Patient: JAGDISH GRAF MR#: [id number] : 1965 Acct:[id number] Age/Sex: 55 / M ADM Date: 11/30/20 Loc: ED Attending Dr: Ordering Physician: LISA MCNEIL MD Date of Service: 11/30/20 Procedure(s): XR shoulder 2+V LT Accession Number(s): [id number] cc: LISA MCNEIL MD Fluoro Time In Minutes: Left shoulder 2 views INDICATION: Neck pain FINDINGS: There is AC degenerative change. Glenohumeral joint appears normal. No acute fracture or dislocation. IMPRESSION: AC degenerative change. Cervical spine 2 views INDICATION: Neck pain FINDINGS: Discogenic degenerative changes seen throughout cervical spine with endplate changes and anterior osteophytes at several levels. No prevertebral soft tissue swelling cervicothoracic junction is not well seen. Signer Name: Edwin Vee MD Signed: 11/30/2020 11:28 PM Workstation Name: [id number] Transcribed By: Dictated By: LAURA VEE MD Electronically Authenticated By: LAURA VEE MD Signed Date/Time: 11/30/202327 DD/ 26 TD/TT: Print Cancel [facility] [address] [place] [address] Cat Scan Report Signed Patient: JAGDISH GRAF MR#: [id number] : 1965 Acct:[id number] Age/Sex: 55 / M ADM Date: 11/30/20 Loc: ED Attending Dr: Ordering Physician: LIAS MCNEIL MD Date of Service: 11/30/20 Procedure(s): CT abdomen pelvis wo con Accession Number(s): [id number] cc: LISA MCNEIL MD CT ABDOMEN AND PELVIS WITHOUT CONTRAST HISTORY: Left flank pain, hematuria. COMPARISON: None. TECHNIQUE: CT images of the abdomen and pelvis were obtained without administration of intravenous contrast. All CT scans at this location are performed using CT dose reduction for ALARA by means of automated exposure control. FINDINGS: Lungs/bones: Lung bases are clear Abdomen/pelvis: Within limits of a noncontrast examination the liver, spleen, adrenal glands appear normal. Gallbladder and upper GI tract appear normal. Calcifications in the right kidney measures 7 mm which. Nonobstructing in the lower pole. No ureteral stone is seen. No left renal or ureteral stone is identified There is some questionable minimal inflammation surrounding the tail of the pancreas however no fluid collection is seen. No pancreatic ductal dilatation bowel loops appear normal. Appendix appears normal. No acute bone findings are seen. IMPRESSION: 1. Nonobstructing right lower pole renal calculus measuring 7 mm. No obstructing stone is seen. 2. Questionable minimal inflammation surrounding the pancreatic tail. Findings could be within normal limits however clinical correlation with pancreatic enzymes or patient history. No fluid collection or pancreatic ductal dilatation is seen. 3. No bowel obstruction. No focal inflammatory change in the bowel loops. Signer Name: Edwin Vee MD Signed: 11/30/2020 11:45 PM Workstation Name: [id number] Transcribed By: DOMINGA Dictated By: LAURA VEE MD Electronically Authenticated By: LAURA VEE MD Signed Date/Time: 11/30/202344 DD/ 40 TD/TT: Print Cancel - Differential Diagnosis Rotator cuff injury, cervical radiculopathy, renal colic, UTI Critical care attestation.: If time is entered above; I have spent that time in minutes in the direct care of this critically ill patient, excluding procedure time. ED Disposition Clinical Impression: Left shoulder pain Disposition: TO HOME OR SELFCARE Is pt being admited?: No Does the pt Need Aspirin: No Condition: Stable Instructions: Shoulder Pain, [id number], Musculoskeletal Pain Additional Instructions: Return to the emergency department should you develop worsening symptoms, inability to tolerate food or liquids, high fever or any other concerns Prescriptions: Cyclobenzaprine [Flexeril] 10 mg PO TID PRN #10 tablet PRN Reason: Muscle Spasm Ibuprofen [Motrin 800 MG tab] 800 mg PO Q8HR PRN #20 tablet PRN Reason: Pain, Moderate (4-6) HYDROcodone/APAP 5-325 [[place] 5/325] 1 - 2 each PO Q6HR PRN #14 tablet PRN Reason: Pain Referrals: PRIMARY CARE, [Primary Care Provider] - 3-5 Days CARLINE SOLARES MD [Staff Physician] - 3-5 Days (Dr. Solares is an orthopedic surgeon. Please follow-up with him for further evaluation)
--- NOTE | 2020-11-30 23:32 | XRay Report ---
Left shoulder 2 views INDICATION: Neck pain FINDINGS: There is AC degenerative change. Glenohumeral joint appears normal. No acute fracture or di slocation. IMPRESSION: AC degenerative change. Cervical spine 2 views INDICATION: Neck pain FINDINGS: Discogenic degenerative changes seen throughout cervical spine with endplate changes and an terior osteophytes at several levels. No prevertebral soft tissue swelling cervicothoracic junction i s not well seen. Signer Name: Edwin Vee MD Signed: 11/30/2020 11:28 PM Workstation Name: [id number]
--- NOTE | 2020-11-30 23:50 | Cat Scan Report ---
CT ABDOMEN AND PELVIS WITHOUT CONTRAST HISTORY: Left flank pain, hematuria. COMPARISON: None. TECHNIQUE: CT images of the abdomen and pelvis were obtained without administration of intravenous co ntrast. All CT scans at this location are performed using CT dose reduction for ALARA by means of au tomated exposure control. FINDINGS: Lungs/bones: Lung bases are clear Abdomen/pelvis: Within limits of a noncontrast examination the liver, spleen, adrenal glands appear normal. Gallbladder and upper GI tract appear normal. Calcifications in the right kidney measures 7 mm which. Nonobstructing in the lower pole. No ureteral stone is seen. No left renal or ureteral stone is identified There is some questionable minimal inflammation surrounding the tail of the pancreas however no fluid collection is seen. No pancreatic ductal dilatation bowel loops appear normal. Appendix appears norm al. No acute bone findings are seen. IMPRESSION: 1. Nonobstructing right lower pole renal calculus measuring 7 mm. No obstructing stone is seen. 2. Questionable minimal inflammation surrounding the pancreatic tail. Findings could be within normal limits however clinical correlation with pancreatic enzymes or patient history. No fluid collection or pancreatic ductal dilatation is seen. 3. No bowel obstruction. No focal inflammatory change in the bowel loops. Signer Name: Edwin Vee MD Signed: 11/30/2020 11:45 PM Workstation Name: [id number]
[2020-12-01 00:38] VITALS: BP 112/82
--- NOTE | 2020-12-05 09:40 | Electrocardiograph Report ---
[facility] Test Date: 2020-11-30 Test Time: 18:37:47 Pat Name: JAGDISH GRAF Department: Room: Gender: M Pearl Cutter: RADU : 1965 Requested By: DAKOTA BURGOS Order Number: [id number] Reading MD: Rafiq Kemp Measurements Intervals [place] Rate: 63 P: 53 [place]: 196 QRS: 49 QRSD: 82 T: 40 QT: 376 QTc: 386 Interpretive Statements Sinus rhythm No previous ECG available for comparison Electronically Signed On 12-05-2020 9:39:56 EDT by Rafiq Kemp
== END 2020-12-01 00:39 | disposition home or self-care (01) ==
LOC: ED 12:30
DX: M25.512 Pain in left shoulder (principal); E11.9 Type 2 diabetes mellitus without complications; J45.909 Unspecified asthma, uncomplicated; Z98.890 Other specified postprocedural states; Z79.899 Other long term (current) drug therapy
CPT/HCPCS: 36415; 71046; 72040; 73030; 74176; 80053; 81001; 82805; 82962; 83735; 84484; 85025; 93005; 96372; 99284; J1885

== ENCOUNTER 2021-10-06 14:32 | Emergency (ER) | payer BC ==
[2021-10-06 17:42] VITALS: BP 121/82
[2021-10-06] MEDS ORDERED: KETOROLAC 60 MG/2 ML INJ IM STA (22:01)
--- NOTE | 2021-10-06 22:11 | Emergency Department Report ---
ED Back Pain/Injury HPI - General Chief Complaint: Back Pain/Injury Stated Complaint: LOW BACK PAIN Time Seen by Provider: 10/06/21 21:54 Source: patient Limitations: No Limitations - History of Present Illness Initial Comments: 56-year-old male presents emerged department complaining of increased urinary frequency and atraumatic lower back pain that radiates towards the left flank. Feels the pain was secondary to a movement he performed on Wednesday while trying to get out of a chair which is when the change within the pain was first initiated. He reports no numbness or tingling, no saddle paresthesia, loss of bowel or bladder. Similar Symptoms Previously: Yes Place: home Quality: dull Consistency: constant Improves With: none Worsens With: none Associated Symptoms: denies: weakness, chest pain, fever/chills, headaches, abdominal pain, rash, seizure, shortness of breath - Related Data Previous Rx's Medication Instructions Recorded Last Taken Type Glimepiride [Amaryl] 4 mg PO QDDIAB #60 tablet 10/25/16 Unknown Rx Insulin Aspart (Nf) [NovoLOG 10 units SQ AC #5 pen 10/25/16 Unknown Rx Flexpen] Insulin Glargine,Hum.rec.anlog 32 units SQ QHS #5 pen 10/25/16 Unknown Rx [Lantus Solostar] Linagliptin [Tradjenta] 5 mg PO QDAY #30 tablet 10/25/16 Unknown Rx Pen Needle, Diabetic [Ultra-Fine 1 each MC QID #1 box 10/25/16 Unknown Rx Short Pen Needle] metFORMIN XR [Glucophage XR] 500 mg PO QDDIAB #60 tablet 10/25/16 Unknown Rx Ibuprofen [Motrin 800 MG tab] 800 mg PO Q8HR PRN 12 Days #30 02/18/19 Unknown Rx tablet Menthol/Camphor [[place] 1 applicatio TP QID PRN #1 tube 02/18/19 Unknown Rx Ointment] predniSONE [Deltasone] 40 mg PO QDAY 5 Days #10 tab 02/18/19 Unknown Rx Cyclobenzaprine [Flexeril] 10 mg PO TID PRN #10 tablet 12/01/20 Unknown Rx HYDROcodone/APAP 5-325 [[place] 1 - 2 each PO Q6HR PRN #14 tablet 12/01/20 Unknown Rx 5/325] Ibuprofen [Motrin 800 MG tab] 800 mg PO Q8HR PRN #20 tablet 12/01/20 Unknown Rx Ketorolac [Toradol] 10 mg PO Q6H PRN #14 10/07/21 Unknown Rx Allergies Allergy/AdvReac Type Severity Reaction Status Date / Time No Known Allergies Allergy Verified 02/07/14 04:58 ED Review of Systems ROS: Stated complaint: LOW BACK PAIN Other details as noted in HPI Comment: All other systems reviewed and negative ED Past Medical Hx - Past Medical History Hx Hypertension: No Hx CVA: No Hx Diabetes: Yes (new dx) Hx GERD: No Hx Renal Disease: No (Renal stones only) Hx Sickle Cell Disease: No Hx Arthritis: No Hx Headaches / Migraines: No Hx Seizures: No Hx Kidney Stones: Yes Hx Psychiatric Treatment: No Hx Asthma: Yes (with paint fumes) Hx HIV: No Additional medical history: kidney stones - Surgical History Hx Pacemaker: No Hx Breast Surgery: No Additional Surgical History: scrotum surgery - Social History Smoking Status: Never Smoker Substance Use Type: None (Denies illicit drug use), Alcohol (Rarely), Prescribed - Medications Home Medications: Home Medications Medication Instructions Recorded Confirmed Last Taken Type Glimepiride [Amaryl] 4 mg PO QDDIAB #60 tablet 10/25/16 Unknown Rx Insulin Aspart (Nf) [NovoLOG 10 units SQ AC #5 pen 10/25/16 Unknown Rx Flexpen] Insulin Glargine,Hum.rec.anlog 32 units SQ QHS #5 pen 10/25/16 Unknown Rx [Lantus Solostar] Linagliptin [Tradjenta] 5 mg PO QDAY #30 tablet 10/25/16 Unknown Rx Pen Needle, Diabetic [Ultra-Fine 1 each MC QID #1 box 10/25/16 Unknown Rx Short Pen Needle] metFORMIN XR [Glucophage XR] 500 mg PO QDDIAB #60 tablet 10/25/16 Unknown Rx Ibuprofen [Motrin 800 MG tab] 800 mg PO Q8HR PRN 12 Days #30 02/18/19 Unknown Rx tablet Menthol/Camphor [[place] 1 applicatio TP QID PRN #1 tube 02/18/19 Unknown Rx Ointment] predniSONE [Deltasone] 40 mg PO QDAY 5 Days #10 tab 02/18/19 Unknown Rx Cyclobenzaprine [Flexeril] 10 mg PO TID PRN #10 tablet 12/01/20 Unknown Rx HYDROcodone/APAP 5-325 [[place] 1 - 2 each PO Q6HR PRN #14 tablet 12/01/20 Unknown Rx 5/325] Ibuprofen [Motrin 800 MG tab] 800 mg PO Q8HR PRN #20 tablet 12/01/20 Unknown Rx Ketorolac [Toradol] 10 mg PO Q6H PRN #14 10/07/21 Unknown Rx ED Physical Exam - General Limitations: No Limitations General appearance: alert, in no apparent distress - Head Head exam: Present: atraumatic, normocephalic - Eye Eye exam: Present: normal appearance, PERRL, EOMI Pupils: Present: normal accommodation - ENT ENT exam: Present: normal exam, normal orophraynx, mucous membranes moist, TM's normal bilaterally - Neck Neck exam: Present: normal inspection, full ROM - Respiratory Respiratory exam: Present: normal lung sounds bilaterally. Absent: respiratory distress, wheezes, rales, rhonchi - Cardiovascular Cardiovascular Exam: Present: regular rate, normal rhythm. Absent: systolic murmur, diastolic murmur, rubs, gallop - GI/Abdominal GI/Abdominal exam: Present: soft, normal bowel sounds - Rectal Rectal exam: Present: deferred - Extremities Exam Extremities exam: Present: normal inspection - Back Exam Back exam: Present: normal inspection. Absent: CVA tenderness (R), CVA tenderness (L) - Neurological Exam Neurological exam: Present: alert, oriented X3, CN II-XII intact - Psychiatric Psychiatric exam: Present: normal affect, normal mood - Skin Skin exam: Present: warm, dry, intact, normal color. Absent: rash ED Course Vital Signs 10/06/21 10/06/21 17:40 23:56 Temperature 98.2 F Pulse Rate 69 Respiratory 18 16 Rate Blood Pressure 121/82 [Right] O2 Sat by Pulse 99 Oximetry Critical care attestation.: If time is entered above; I have spent that time in minutes in the direct care of this critically ill patient, excluding procedure time. ED Disposition Clinical Impression: Lumbago, Hyperglycemia Disposition: HOME / SELF CARE / HOMELESS Is pt being admited?: No Does the pt Need Aspirin: No Condition: Stable Instructions: What You Need to Know About Chronic Back Pain, Back Exercises, [id number], Preventing Back Pain for New Parents Additional Instructions: You were evaluated emergency department today for chest pain. Your evaluation has shown no medicals conditions requiring emergent intervention at this time, however recommend that you follow-up with your primary care physician or your retirement sales consultant soon as possible for further testing as an outpatient. Please schedule an appointment for follow-up with your primary care physician as soon as possible. Return to emergency department if you expands worsening uncontrolled chest pain, shortness of breath, lightheadedness, feeling faint, nausea, vomiting or any other concerning symptoms. Prescriptions: Ketorolac [Toradol] 10 mg PO Q6H PRN #14 PRN Reason: Pain Referrals: WILLEM ROSS MD [Primary Care Provider] - 3-5 Days
[2021-10-07 01:58] LABS: Bilirubin,Urine NEG (Negative); Blood,Urine NEG (Negative); Color,Urine Yellow (Yellow); Mucus,Urine 3+ /HPF; Urobilinogen,Urine < 2.0 mg/dL (<2.0)
[2021-10-07 02:01] LABS: WBC,Urine < 1.0 /HPF (0.0-6.0)
== END 2021-10-07 04:22 | disposition home or self-care (01) ==
LOC: ED 14:32
DX: E11.65 Type 2 diabetes mellitus with hyperglycemia (principal); N20.0 Calculus of kidney; J45.909 Unspecified asthma, uncomplicated; Z79.899 Other long term (current) drug therapy
CPT/HCPCS: 81001; 82962; 96372; 99283; J1885